=== PATIENT | female | born 1995 | race Caucasian/White ===

== ENCOUNTER 2019-04-25 03:51 | Emergency (ER) | payer OTHER ==
[~2019-04-25] VITALS: Ht 160 cm; Wt 61.0 kg
[~2019-04-25 03:51] MED LIST: ACET500C5 PO; ONDA4TAB14 PO
[2019-04-25 04:04] VITALS: RESP 16; Ht 160 cm; Wt 61.0 kg
[2019-04-25] MEDS ORDERED: KETOROLAC 30 MG INJ IV STA (05:17)
[2019-04-25] MEDS ORDERED: ONDANSETRON 4 MG INJ IV STA (05:17)
[2019-04-25] MEDS ORDERED: SOD CHLORIDE 0.9% 1,000 ML IV STA (05:17)
--- NOTE | 2019-04-25 06:02 | EN ---
Date/Time of Note Date/Time of Note DATE: 04/25/19 TIME: 05:58 ER Progress Note History of Present Illness: 23-year-old female who denies a past medical history coming in today due to complaint of abdominal pain. Patient reports that she developed nausea vomiting last night at approximately 2230. Patient reports she then developed epigastric abdominal pain around 2300. Patient reports over 10 episodes of vomiting since onset. Denies sick contacts. At home pharmacological/nonpharmacological treatment for symptoms: Denies Denies social concerns; Denies recent foreign travel ---- Initial work-up started on patient for blood work including CBC, CMP, lipase, urine , urinalysis Initial medication started on patient including IV NS, ketorolac, Zofran --- Patient is hemodynamically stable. Patient will be passed off to [facility]enn[facility] HUMPHRIES for further evaluation and complete work-up MANDEEP SMILEY NP Apr 25, 2019 06:02
--- NOTE | 2019-04-25 06:48 | ERD ---
ER Documentation Chief Complaint Chief Complaint ABDOMINAL PAIN WITH NAUSEA AND VOMITING SINCE 2300 LAST NIGHT. HPI 23-year-old female who denies a past medical history coming in today due to complaint of upper abdominal pain. Patient reports that she developed nausea vomiting last night at approximately 2230. Patient reports she then developed epigastric/just below the sternum abdominal pain around 2300. Patient states she may have eaten some undercooked meat at a fair she had 10 before onset of the symptoms. Patient reports over 10 episodes of vomiting since onset. Denies sick contacts. She denies fever, chills, diarrhea, urinary symptoms, vaginal itching or discharge. She otherwise is without complaint. ROS All systems reviewed and are negative except as per history of present illness. Medications Home Meds Active Scripts Acetaminophen* (Tylophen*) 500 Mg Capsule, 1 CAP PO Q6H PRN for PAIN AND OR ELEVATED TEMP, #20 CAP Prov:EDIN BLACKMAN PA-C 04/25/19 Ondansetron (Ondansetron Odt) 4 Mg Tab.rapdis, 4 MG PO Q6H PRN for NAUSEA AND/OR VOMITING, #10 TAB Prov:EDIN BLACKMAN PA-C 04/25/19 Allergies Allergies: Coded Allergies: No Known Allergy (Unverified , 04/25/19) PMhx/Soc Medical and Surgical Hx: pt denies Medical Hx, pt denies Surgical Hx Hx Alcohol Use: No Hx Substance Use: No Hx Tobacco Use: No Smoking Status: Never smoker FmHx Family History: No diabetes, No coronary disease, No other Physical Exam Vitals Vital Signs Date Temp Pulse Resp B/P (MAP) Pulse Ox O2 O2 Flow FiO2 Time Delivery Rate 04/25/19 97.2 117 16 128/75 98 04:04 (92) Physical Exam Const: No acute distress Head: Atraumatic Eyes: Normal Conjunctiva ENT: Normal External Ears, Nose and Mouth. Neck: Full range of motion. No meningismus. Resp: Clear to auscultation bilaterally Cardio: Regular rate and rhythm, no murmurs Abd: Soft, non tender, non distended. Normal bowel sounds Skin: No petechiae or rashes Back: No midline or flank tenderness Ext: No cyanosis, or edema Neur: Awake and alert Psych: Normal Mood and Affect Result Diagram: 04/25/1952704/25/19527 Results 24 hrs Laboratory Tests Test 04/25/19 04:41 04/25/19 05:28 POC Beta HCG, Qualitative NEGATIVE White Blood Count 19.3 10^3/ul Red Blood Count 4.67 10^6/ul Hemoglobin 15.1 g/dl Hematocrit 44.0 % Mean Corpuscular Volume 94.2 fl Mean Corpuscular Hemoglobin 32.3 pg Mean Corpuscular Hemoglobin Concent 34.3 g/dl Red Cell Distribution Width 11.7 % Platelet Count 249 10^3/UL Mean Platelet Volume 10.6 fl Immature Granulocytes % 0.500 % Neutrophils % 92.5 % Lymphocytes % 4.2 % Monocytes % 2.5 % Eosinophils % 0.1 % Basophils % 0.2 % Nucleated Red Blood Cells % 0.0 /100WBC Immature Granulocytes # 0.090 10^3/ul Neutrophils # 17.8 10^3/ul Lymphocytes # 0.8 10^3/ul Monocytes # 0.5 10^3/ul Eosinophils # 0.0 10^3/ul Basophils # 0.0 10^3/ul Nucleated Red Blood Cells # 0.0 10^3/ul Urine Color CECILIO Urine Clarity SLIGHTLY CLOUDY Urine pH 6.0 Urine Specific [place] 1.029 Urine Ketones 2+ mg/dL Urine Nitrite NEGATIVE mg/dL Urine Bilirubin NEGATIVE mg/dL Urine Urobilinogen NEGATIVE mg/dL Urine Leukocyte Esterase NEGATIVE Dejon/ul Urine Microscopic RBC 4 /HPF Urine Microscopic WBC 4 /HPF Urine Squamous Epithelial Cells FEW /HPF Urine Mucus MANY /HPF Urine Hemoglobin NEGATIVE mg/dL Urine Glucose NEGATIVE mg/dL Urine Total Protein 1+ mg/dl Sodium Level 142 mmol/L Potassium Level 4.0 mmol/L Chloride Level 106 mmol/L Carbon Dioxide Level 25 mmol/L Anion Gap 11 Blood Urea Nitrogen 14 mg/dl Creatinine 0.70 mg/dl Est Glomerular Filtrat Rate mL/min > 60 mL/min Glucose Level 133 mg/dl Calcium Level 9.5 mg/dl Total Bilirubin 0.9 mg/dl Direct Bilirubin 0.00 mg/dl Indirect Bilirubin 0.9 mg/dl Aspartate Amino Transf (AST/SGOT) 28 IU/L Alanine Aminotransferase (ALT/SGPT) 20 IU/L Alkaline Phosphatase 52 IU/L Total Protein 8.6 g/dl Albumin 4.6 g/dl Globulin 4.00 g/dl Albumin/Globulin Ratio 1.15 Lipase 80 U/L Current Medications Medications Dose Sig/Flores Start Time Status Last (Trade) Ordered Route PRN Stop Time Admin Dose Reason Admin Sodium 1,000 ml @ Q1H STAT 04/25/19 DC 04/25/19 Chloride 1,000 mls/hr IV 05:17 05:41 04/25/19 06:16 Ondansetron 4 mg ONCE STAT 04/25/19 DC 04/25/19 HCl (Zofran IV 05:17 05:41 Inj) 04/25/19 05:19 Ketorolac 30 mg ONCE STAT 04/25/19 DC 04/25/19 Tromethamine IV 05:17 05:43 (Toradol) 04/25/19 05:19 Procedures/MDM 22-year-old female presented with complaint of abdominal pain. Patient taken over from ELIDA Valle. Upon my reexamination patient reporting resolution of abdominal pain with nontender exam. Symptoms likely secondary to gastritis given history. I have low suspicion for any acute intra-abdominal process warranting further emergent care or work-up at this time. Considered ectopic , spectrum of miscarriage/ (threatened, inevitable, incomplete, complete, septic) as well as causes of female-specific abdominal pain unrelated to (e.g., pelvic inflammatory disease with or without tubo-ovarian abscess, [id number], etc.). Also considered causes of abdominal pain that are not gender-specific (e.g., appendicitis, volvulus, small bowel obstruction, mesenteric adenitis, acute cholecystitis/choledocholithiasis and other biliary pathology, etc.). Patient well-appearing with normal vital signs. ED course: CBC 19,000, likely secondary to recurrent vomiting, I have low suspicion for acute intra-abdominal, infectious process All other labs unremarkable UA unremarkable DISPOSITION PLAN: We discussed follow up with the patient's primary care doctor within 24 to 48 hours. Patient counseled regarding my diagnostic impression and care plan. Prior to discharge all questions answered. Pt agrees with treatment plan and understands strict return precautions. Precautionary instructions provided including instructions to return to the ER if not improving or for any worsening or changing symptoms or concerns. Disclaimer: Inadvertent spelling and grammatical errors are likely due to EHR/dictation software use and do not reflect on the overall quality of patient care. Also, please note that the electronic time recorded on this note does not necessarily reflect the actual time of the patient encounter. Departure Diagnosis: Primary Impression: Abdominal pain Condition: Stable Patient Instructions: Abdominal Pain Referrals: JAMES NIETO MD (PCP) Additional Instructions: Call your primary care doctor TOMORROW for an appointment during the next 2-3 days.See the doctor sooner or return here if your condition worsens before your appointment time. EDIN BLACKMAN PA-C Apr 25, 2019 06:48
[2019-04-25 06:56] VITALS: BP 104/55; PULSE 90
== END 2019-04-25 06:57 | disposition home or self-care (01) ==
LOC: FTE 03:51
DX: R10.10 Upper abdominal pain, unspecified (principal); R11.2 Nausea with vomiting, unspecified
CPT/HCPCS: 36415; 80053; 81001; 81025; 83690; 85025; 96361; 96374; 96375; 99284; J1885; J2405; J7030